=== PATIENT | female | born 1935 | race Caucasian/White ===

== ENCOUNTER → 2017-11-03 | Outpatient (CLI) | payer MEDICARE ==
[~2017-11-03] MED LIST: ACET-1966 PO; ASPI-1471 PO; CHOL100058 PO; FLU45SYR25 IM ONLY; FURO-45 PO; GUAI-274 PO; IBUP-56 PO; LACT237L30 PO; LOPE2CAP15 PO; MOM PO; MULT-947 PO; OMEP-218 PO; OMEP20CA68 PO; PNEI IJ; POTA8TAB45 PO; SULF-198 PO
== END ==
LOC: ZZSPRING 02:23
PROVIDERS: ATTEND Family Medicine
DX: I10 Essential (primary) hypertension (principal)
CPT/HCPCS: 36415; 82040; 82247; 82310; 82374; 82435; 82565; 82947; 84075; 84132; 84155; 84295; 84450; 84460; 84520; 85027

== ENCOUNTER → 2018-01-05 | Outpatient (CLI) | payer MEDICARE | LOC: ZZSPRING 00:58 | PROVIDERS: ATTEND Family Medicine | DX: D64.9 Anemia, unspecified (principal) | CPT/HCPCS: 36415; 82310; 82374; 82435; 82565; 82947; 84132; 84295; 84520; 85027 ==

== ENCOUNTER 2018-04-03 06:46 | Inpatient (IN) | payer MEDICARE ==
[~2018-04-03] VITALS: Ht 165.1 cm; Wt 83.9 kg
--- NOTE | 2018-04-03 06:11 | ER Report ---
History and Physical Time Seen By MD: 06:11 HPI/ROS CHIEF COMPLAINT: Fever, shortness breath, hypoxia HISTORY OF PRESENT ILLNESS: Patient is an 82-year-old female from spring here after being found to be hypoxic in the 80s, afebrile at 104F per group home report. She did receive Tylenol prior to arrival. Patient does have history of dementia and is able to tell us that she is short of breath and feels generally ill. EMS reports that the patient was persistently febrile with a temp of 103F. Patient does not require supplemental oxygen at baseline and was sent in because group home is unable to administer supplemental oxygen. REVIEW OF SYSTEMS: Constitutional: + fever, + chills. Eyes: No discharge. ENT: No sore throat. Cardiovascular: No chest pain, no palpitations. Respiratory: + cough, + shortness of breath Gastrointestinal: No abdominal pain, no vomiting. Genitourinary: No hematuria. Musculoskeletal: No back pain. Skin: No rashes. Neurological: No headache. Allergies: Coded Allergies: Penicillins (Verified Allergy, Unknown, 04/03/18) Cedhpza-Hsx-Kba Reductase Inhibitor (Verified Adverse Reaction, Unknown, Confusion and viusl hallucinations, 04/03/18) Home Meds Active Scripts Lactose-Free Food (BOOST) 237 Ml Liquid, 1 BOTTLE PO DAILY PRN for prn, #90 B OTTLE Prov:KERRI ALATORRE MD 02/23/18 Cholecalciferol (Vitamin D3) (VITAMIN D) 1,000 Unit Capsule, 1 CAP PO QDAY for 90 Days, #90 CAPSULE Prov:KERRI ALATORRE MD 06/16/17 Omeprazole Magnesium (OMEPRAZOLE MAGNESIUM) 20 Mg Capsule.dr, 1 TAB PO DAILY, #180 CAP 4 Refills Prov:KERRI ALATORRE MD 06/16/17 Reported Medications Cholecalciferol (Vitamin D3) (VITAMIN D3) 1,000 Unit Tablet, 1000 UNIT PO, TAB 04/03/18 Dextromethorphan Hbr (TUSSIN COUGH) 15 Mg/5 Ml Liquid, 15 MG PO 04/03/18 Omeprazole (OMEPRAZOLE) 20 Mg Capsule.dr, 1 CAP PO QDAY, CAP 04/03/18 Magnesium Hydroxide (MILK OF MAGNESIA) 400 Mg/5 Ml Oral.susp, 400 MG PO, BOTTLE 04/03/18 Mag Hydrox/Aluminum Hyd/Simeth (Maalox Advanced Suspension) 200 Mg-200 Mg-20 Mg/5 Ml Oral.susp 04/03/18 Loperamide Hcl (IMODIUM A-D) 1 Mg/7.5 Ml Liquid, 1 MG PO 04/03/18 Ibuprofen (IBUPROFEN) 200 Mg Capsule, 2 CAP PO Q6H, CAPSULE 04/03/18 Saliva Stimulant Agents Comb.3 (BIOTENE MOISTURIZING MOUTH) 44.3 Ml [place], 44.3 ML MM, SPRAY 04/03/18 Aspirin (ASPIRIN EC) 325 Mg Tablet.dr, 325 MG PO QDAY, TAB 04/03/18 Dextran 70/Hypromellose (ARTIFICIAL TEARS) 1 Each Droperette, 1 EACH OP 04/03/18 Magnesium Carbonate/Al Hydrox (ANTACID EXTRA STRENGTH CHW TAB) 1 Each Tab.chew, 1 EACH PO DAILY, TAB.CHEW 04/03/18 Acetaminophen (TYLENOL) 325 Mg Tablet, 325 MG PO Q4H, TAB 04/03/18 Hx Smoking: No Smoking Status: Never Smoker Hx Alcohol Use: No Constitutional Vital Sign - Last 24 Hours 04/03/18 04/03/18 04/03/18 06:15 06:46 07:01 Temp 101.3 Pulse 81 83 82 Resp 18 8 B/P (MAP) 129/75 120/60 (80) Pulse Ox 86 92 94 O2 Delivery Room Air Nasal Cannula Nasal Cannula O2 Flow Rate 2 2 Physical Exam General Appearance: The patient is alert, has no immediate need for airway protection and no signs of toxicity. Mild distress, + febrile Eyes: Pupils equal and round no pallor or injection. ENT, Mouth: Mucous membranes are + dry Respiratory: There are no retractions, lungs diminished at bases without rhonchi Cardiovascular: Regular rate and rhythm. Gastrointestinal: Abdomen is soft and non tender, no masses, bowel sounds normal. Neurological: + confused, demented at baseline Skin: Warm and dry, no rashes. Musculoskeletal: Neck is supple non tender. Extremities are nontender, nonswollen and have full range of motion. DIFFERENTIAL DIAGNOSIS: After history and physical exam differential diagnosis was considered for sepsis, pneumonia, viral syndrome, influenza, urinary tract infection Medical Decision Making Data Points Result Diagram: 04/03/18 0610 04/03/18 0610 Laboratory Hematology Test 04/03/18 06:10 04/03/18 06:26 Red Blood Count 4.03 M/uL (4.17-5.56) Mean Corpuscular Volume 73.5 fL (80.0-96.0) Mean Corpuscular Hemoglobin 23.6 pg (26.0-33.0) Mean Corpuscular Hemoglobin Concent 32.1 g/dL (32.0-36.0) Red Cell Distribution Width 17.2 % (11.5-14.5) Mean Platelet Volume 8.7 fL (7.2-11.1) Neutrophils (%) (Auto) 86.1 % (39.4-72.5) Lymphocytes (%) (Auto) 5.0 % (17.6-49.6) Monocytes (%) (Auto) 8.7 % (4.1-12.4) Eosinophils (%) (Auto) 0.0 % (0.4-6.7) Basophils (%) (Auto) 0.2 % (0.3-1.4) Nucleated RBC Relative Count (auto) 0.0 /100WBC Neutrophils # (Auto) 7.9 K/uL (2.0-7.4) Lymphocytes # (Auto) 0.5 K/uL (1.3-3.6) Monocytes # (Auto) 0.8 K/uL (0.3-1.0) Eosinophils # (Auto) 0.0 K/uL (0.0-0.5) Basophils # (Auto) 0.0 K/uL (0.0-0.1) Nucleated RBC Absolute Count (auto) 0.00 K/uL Peripheral Blood Smear No Y/N Prothrombin Time 15.0 seconds (12.0-14.4) Prothromb Time International Ratio 1.17 Activated Partial Thromboplast Time 33 seconds (23-35) Sodium Level 137 mmol/L (137-145) Potassium Level 4.3 mmol/L (3.5-5.0) Chloride Level 107 mmol/L (98-107) Carbon Dioxide Level 22 mmol/L (22-31) Blood Urea Nitrogen 17 mg/dl (7-18) Creatinine 1.00 mg/dl (0.52-1.04) Glomerular Filtration Rate Calc 53.3 Random Glucose 106 mg/dl (75-110) Lactate 1.1 mmol/L (0.7-2.1) Calcium Level 9.1 mg/dl (8.4-10.2) Total Bilirubin 0.9 mg/dl (0.2-1.3) Aspartate Amino Transf (AST/SGOT) 21 U/L (0-35) Alanine Aminotransferase (ALT/SGPT) 22 U/L (0-56) Alkaline Phosphatase 77 U/L (0-126) Troponin I < 0.012 ng/ml Total Protein 5.8 g/dl (6.3-8.2) Albumin 3.1 g/dl (3.5-5.0) Urine Color Yellow Urine Clarity Cloudy Urine pH 6.0 pH (4.8-9.5) Urine Specific Agar 1.015 Urine Protein 100 mg/dL (NEGATIVE) Urine Glucose (UA) Negative mg/dL (NEGATIVE) Urine Ketones Negative mg/dL (NEGATIVE) Urine Blood Small (NEGATIVE) Urine Nitrite Positive (NEGATIVE) Urine Bilirubin Negative (NEGATIVE) Urine Urobilinogen Negative mg/dL (0.2-1.9) Urine Leukocyte Esterase Large (NEGATIVE) Urine RBC 14 /HPF (0-2/HPF) Urine WBC 931 /HPF (0-5/HPF) Urine Squamous Epithelial Cells None /LPF (NONE-FEW) Urine Transitional Epithelial Cells Few /LPF (NONE-FEW) Urine Bacteria Many /HPF (NONE-FEW) Urine Mucus None /HPF (NONE-FEW) Chemistry Test 04/03/18 06:10 04/03/18 06:26 White Blood Count 9.2 k/uL (4.5-11.0) Red Blood Count 4.03 M/uL (4.17-5.56) Hemoglobin 9.5 g/dL (12.0-16.0) Hematocrit 29.6 % (34.0-47.0) Mean Corpuscular Volume 73.5 fL (80.0-96.0) Mean Corpuscular Hemoglobin 23.6 pg (26.0-33.0) Mean Corpuscular Hemoglobin Concent 32.1 g/dL (32.0-36.0) Red Cell Distribution Width 17.2 % (11.5-14.5) Platelet Count 169 K/uL (150-450) Mean Platelet Volume 8.7 fL (7.2-11.1) Neutrophils (%) (Auto) 86.1 % (39.4-72.5) Lymphocytes (%) (Auto) 5.0 % (17.6-49.6) Monocytes (%) (Auto) 8.7 % (4.1-12.4) Eosinophils (%) (Auto) 0.0 % (0.4-6.7) Basophils (%) (Auto) 0.2 % (0.3-1.4) Nucleated RBC Relative Count (auto) 0.0 /100WBC Neutrophils # (Auto) 7.9 K/uL (2.0-7.4) Lymphocytes # (Auto) 0.5 K/uL (1.3-3.6) Monocytes # (Auto) 0.8 K/uL (0.3-1.0) Eosinophils # (Auto) 0.0 K/uL (0.0-0.5) Basophils # (Auto) 0.0 K/uL (0.0-0.1) Nucleated RBC Absolute Count (auto) 0.00 K/uL Peripheral Blood Smear No Y/N Prothrombin Time 15.0 seconds (12.0-14.4) Prothromb Time International Ratio 1.17 Activated Partial Thromboplast Time 33 seconds (23-35) Glomerular Filtration Rate Calc 53.3 Lactate 1.1 mmol/L (0.7-2.1) Calcium Level 9.1 mg/dl (8.4-10.2) Total Bilirubin 0.9 mg/dl (0.2-1.3) Aspartate Amino Transf (AST/SGOT) 21 U/L (0-35) Alanine Aminotransferase (ALT/SGPT) 22 U/L (0-56) Alkaline Phosphatase 77 U/L (0-126) Troponin I < 0.012 ng/ml Total Protein 5.8 g/dl (6.3-8.2) Albumin 3.1 g/dl (3.5-5.0) Urine Color Yellow Urine Clarity Cloudy Urine pH 6.0 pH (4.8-9.5) Urine Specific Ag[place] 1.015 Urine Protein 100 mg/dL (NEGATIVE) Urine Glucose (UA) Negative mg/dL (NEGATIVE) Urine Ketones Negative mg/dL (NEGATIVE) Urine Blood Small (NEGATIVE) Urine Nitrite Positive (NEGATIVE) Urine Bilirubin Negative (NEGATIVE) Urine Urobilinogen Negative mg/dL (0.2-1.9) Urine Leukocyte Esterase Large (NEGATIVE) Urine RBC 14 /HPF (0-2/HPF) Urine WBC 931 /HPF (0-5/HPF) Urine Squamous Epithelial Cells None /LPF (NONE-FEW) Urine Transitional Epithelial Cells Few /LPF (NONE-FEW) Urine Bacteria Many /HPF (NONE-FEW) Urine Mucus None /HPF (NONE-FEW) Coagulation Test 04/03/18 06:10 Prothrombin Time 15.0 seconds Prothromb Time International Ratio 1.17 Activated Partial Thromboplast Time 33 seconds Urinalysis Test 04/03/18 06:26 Urine Color Yellow Urine Clarity Cloudy Urine pH 6.0 pH (4.8-9.5) Urine Specific Agar 1.015 Urine Protein 100 mg/dL (NEGATIVE) Urine Glucose (UA) Negative mg/dL (NEGATIVE) Urine Ketones Negative mg/dL (NEGATIVE) Urine Blood Small (NEGATIVE) Urine Nitrite Positive (NEGATIVE) Urine Bilirubin Negative (NEGATIVE) Urine Urobilinogen Negative mg/dL (0.2-1.9) Urine Leukocyte Esterase Large (NEGATIVE) Urine RBC 14 /HPF (0-2/HPF) Urine WBC 931 /HPF (0-5/HPF) Urine Squamous Epithelial Cells None /LPF (NONE-FEW) Urine Transitional Epithelial Cells Few /LPF (NONE-FEW) Urine Bacteria Many /HPF (NONE-FEW) Urine Mucus None /HPF (NONE-FEW) EKG/Imaging EKG Interpretation 12 lead EKG: Normal sinus rhythm, ventricular rate 79, QTC 433, no ischemic changes or arrhythmias present. Rhythm: normal sinus rhythm [place]: normal QRS: normal ST segments: normal Imaging Location: [facility] Patient: Ale Moffett : 1935 Visit/Account:[id number] Date of Sevice: 04/03/2018 PORTABLE CHEST: Indication: Dyspnea and hypoxia. Technique: A single frontal film was obtained. Comparison: None available. Skeletal and soft tissue structures: There are mild degenerative changes in the spine. No acute skeletal deformity is identified. Heart and mediastinum: The heart may be mildly enlarged. Lung moss: Well-expanded. There are diffuse mild interstitial changes. No acute parenchymal process is identified. There is no evidence of vascular congestion. Pleural spaces: Unremarkable. Impression: No acute process. ED Course/Re-evaluation Clinical Indication for ER IV: Hydration, IV Access ED Course Patient is an 82-year-old female from group home facility here with fever, hypoxia, new oxygen requirement in the setting of dementia, patient unable to verbalize primary complaint. She was given Tylenol prior to arrival. Patient was given fluid bolus, sepsis workup initiated. UA nitrite and esterase positive. Patient was administered IV Levaquin for antimicrobial therapy. Urine culture sent. Blood cultures collected. I discussed patient with Dr. Cristi Vargas accepted patient to the internal medicine service. Patient was stable at time of admission. Decision to Disposition Date: Apr 03, 2018 Decision to Disposition Time: 07:23 Depart Departure Latest Vital Signs Vital Signs Date Time Temp Pulse Resp B/P (MAP) Pulse Ox O2 Delivery O2 Flow Rate FiO2 04/03/18 07:01 82 8 120/60 (80) 94 Nasal Cannula 2 04/03/18 06:15 101.3 Impression: Primary Impression: Urinary tract infection Additional Impression: Fever Condition: Improved Disposition: Admitted from ER Referrals: KERRI ALATORRE MD (PCP) Problem Qualifiers BLADIMIR MOJICA DO Apr 03, 2018 06:11
--- NOTE | 2018-04-03 06:35 | EKG ---
[place] [facility] [place] REGIS ARSHAD : [id number] MR: [id number] V: [id number] EXAM DATE: ORDERING PHYSICIAN: BLADIMIR MOJICA TECHNOLOGIST: SAW Test Reason : SOB Blood Pressure : / mmHG Vent. Rate : 079 BPM Atrial Rate : 079 BPM P-R Int : 168 ms QRS Dur : 102 ms QT Int : 378 ms P-R-T Axes : 062 -24 050 degrees QTc Int : 433 ms Sinus rhythm Left axis No acute appearing abnormalities No previous ECGs available Confirmed by ALIVIA KHAN ([id number]) on 04/03/2018 9:49:07 AM Referred By: Confirmed By:ALIVIA KHAN
[2018-04-03 06:45] LABS: PLATELET COUNT, AUTOMATED 169 K/uL (150-450)
[~2018-04-03 06:46] MED LIST changes: -ASPI-764 PO; -CALC-520 PO; -CEFU250T11 PO; -CHOL10005 PO; -DEXT15LI36 PO; -DEXT1DRO15 OU; -IBUP-136 PO; -LOPE-147 PO; -LOPE1LIQ49 PO; -MAG-65 PO; -MAGN1TAB2 PO; +NS(*) 0.9% 1000 ML BAG 1,000 ML IV ONE; -OMEP-125 PO; -SALI10002 PO; -SALI1ADH TP; -SALI44.34 MM
[2018-04-03] MEDS ORDERED: LEVOFLOXACIN/D5W 750 MG/150 ML 150 ML IVPB ONE (06:55)
--- NOTE | 2018-04-03 06:55 | RADIOLOGY IMAGING REPORT ---
FACILITY: [facility] PATIENT NAME: Ale Moffett : 1935 MR: [id number] V: [id number] EXAM DATE: ORDERING PHYSICIAN: BLADIMIR MOJICA TECHNOLOGIST: Location: [facility] [place] Patient: Ale Moffett : 1935 Visit/Account:[id number] Date of Sevice: 04/03/2018 PORTABLE CHEST: Indication: Dyspnea and hypoxia. Technique: A single frontal film was obtained. Comparison: None available. Skeletal and soft tissue structures: There are mild degenerative changes in the spine. No acute skele dwayne deformity is identified. Heart and mediastinum: The heart may be mildly enlarged. Lung moss: Well-expanded. There are diffuse mild interstitial changes. No acute parenchymal process is identified. There is no evidence of vascular congestion. Pleural spaces: Unremarkable. Impression: No acute process. Report Dictated By: Josue Whittaker MD at 04/03/2018 6:50 AM Report E-Signed By: Josue Whittaker MD at 04/03/2018 6:52 AM WSN:[id number]
[2018-04-03 07:02] LABS: INR 1.17
[2018-04-03] MEDS ORDERED: LOPE1LIQ49 PO (07:09)
[2018-04-03] MEDS ORDERED: IBUP-136 PO (07:09)
[2018-04-03] MEDS ORDERED: MOM PO (07:09)
[2018-04-03] MEDS ORDERED: ASPI-764 PO (07:09)
[2018-04-03] MEDS ORDERED: DEXT1DRO15 OU (07:09)
[2018-04-03] MEDS ORDERED: CHOL10005 PO (07:09)
[2018-04-03] MEDS ORDERED: DEXT15LI36 PO (07:09)
[2018-04-03] MEDS ORDERED: MAG-65 PO (07:09)
[2018-04-03] MEDS ORDERED: OMEP-125 PO (07:09)
[2018-04-03] MEDS ORDERED: SALI44.34 MM (07:09)
[2018-04-03] MEDS ORDERED: MAGN1TAB2 PO (07:09)
[2018-04-03] MEDS ORDERED: ACET-1966 PO (07:09)
[2018-04-03 08:02] VITALS: BP 129/58
[2018-04-03] MEDS ORDERED: FLUSH 10 ML SYR IVP PRN (08:05)
[2018-04-03] MEDS ORDERED: CALC-520 PO (08:05)
[2018-04-03] MEDS ORDERED: LOPE-147 PO (08:13)
[2018-04-03] MEDS ORDERED: SALI10002 PO (08:13)
[2018-04-03] MEDS ORDERED: LACT237L30 PO (08:13)
[2018-04-03] MEDS ORDERED: SALI1ADH TP (08:19)
[2018-04-03] MEDS ORDERED: CALCIUM CARBONATE 500 MG CHEW PO PRN (08:35)
[2018-04-03] MEDS ORDERED: HYPROMELLOSE 0.4% LUB 15ML BTL OU PRN (08:35)
[2018-04-03] MEDS: NS(*) 0.9% 1000 ML BAG 1,000 ML IV PRN ×2 (08:44→18:54)
[2018-04-03] MEDS: PANTOPRAZOLE SOD 40 MG TABEC PO SCH (08:52)
[2018-04-03] MEDS: CHOLECALCIFEROL 1000 UNIT TAB PO SCH (08:52)
--- NOTE | 2018-04-03 08:54 | History & Physical ---
History of Present Illness Chief Complaint Fever to 103.3 at [facility]. History of Present Illness The patient is an 82 year old female who resides at [facility]. She is unable to give any history due to dementia and confusion. Per the patient's records, her PMH is significant for Alzheimer's dementia, dysphagia with hx of esophageal stricture and GERD. She was sent to [facility] ED earlier today due to fever. Per paperwork from [facility], her fever was 103.3. In the ER, evaluation revealed pyuria. Her chest x-ray was clear. WBC was high normal with a left shift. CMP was unremarkable. Lactate was WNL. The patient was recommended for admission for treatment of UTI. History Problems: (1) Alzheimer's dementia Status: Chronic (2) HTN (hypertension) Status: Chronic (3) Dysphagia Status: Chronic (4) Hx of total knee arthroplasty Status: Resolved Comment: Bilateral. (5) Skin cancer (6) Esophageal stricture Status: Resolved Comment: S/P dilation in 2017. (7) Edentulous Status: Chronic (8) Hx of hysterectomy Status: Resolved (9) Depression Status: Chronic Home Meds Active Scripts Lactose-Free Food (BOOST) 237 Ml Liquid, 1 BOTTLE PO TID PRN for prn, #90 BOTTLE Prov:SOLITARIO KHAN MD 04/03/18 Cholecalciferol (Vitamin D3) (VITAMIN D) 1,000 Unit Capsule, 1 CAP PO QDAY for 90 Days, #90 CAPSULE Prov:KERRI ALATORRE MD 06/16/17 Reported Medications Salicylic Acid (MEDIPLAST [id number]) 1 Each Adh..patch, 1 EACH TP DAILY On in AM prior to application of TEDs, off in PM after TEDs removed. 04/03/18 Loperamide Hcl (ANTI-DIARRHEA) 2 Mg Tablet, 2 MG PO PRN PRN for DIARRHEA Take 2 tabs after first loose stool, then 1 tab po after other loose stools. Do not exceed 8 doses in 24 hours. 04/03/18 Saliva Substitution Combo No.9 (Biotene) 1,000 Ml Mouthwash, 15 ML PO TID PRN for DRY MOUTH 04/03/18 Calcium Carbonate (TUMS X-STR) 300 Mg Tab.chew, 750-1500 MG PO Q2H PRN for DYSPEPSIA, TAB.CHEW Patient uses Tums extra strength 750 tabs at [facility]. 04/03/18 Dextromethorphan Hbr (TUSSIN COUGH) 15 Mg/5 Ml Liquid, 5 ML PO Q4-6H PRN for COUGH 04/03/18 Omeprazole (OMEPRAZOLE) 20 Mg Capsule.dr, 1 CAP PO QDAY, CAP 04/03/18 Magnesium Hydroxide (MILK OF MAGNESIA) 400 Mg/5 Ml Oral.susp, 15-30 ML PO BID PRN for CONSTIPATION, BOTTLE 04/03/18 Mag Hydrox/Aluminum Hyd/Simeth (Maalox Advanced Suspension) 200 Mg-200 Mg-20 Mg/5 Ml Oral.susp, 15 ML PO Q4H PRN for DYSPEPSIA 04/03/18 Ibuprofen (IBUPROFEN) 200 Mg Capsule, 1-2 CAP PO Q6H PRN for PAIN, CAPSULE Give with food. 04/03/18 Aspirin (ASPIRIN EC) 325 Mg Tablet.dr, 325 MG PO ONCE PRN for chest pain, TAB 04/03/18 Dextran 70/Hypromellose (ARTIFICIAL TEARS) 1 Each Droperette, 1 GTT OU PRN for dry eyes 04/03/18 Acetaminophen (TYLENOL) 325 Mg Tablet, 325-650 MG PO Q4H PRN for pain or fever, TAB 04/03/18 Discontinued Reported Medications Cholecalciferol (Vitamin D3) (VITAMIN D3) 1,000 Unit Tablet, 1000 UNIT PO, TAB 04/03/18 Loperamide Hcl (IMODIUM A-D) 1 Mg/7.5 Ml Liquid, 1 MG PO 04/03/18 Saliva Stimulant Agents Comb.3 (BIOTENE MOISTURIZING MOUTH) 44.3 Ml [place], 44.3 ML MM, SPRAY 04/03/18 Magnesium Carbonate/Al Hydrox (ANTACID EXTRA STRENGTH CHW TAB) 1 Each Tab.chew, 1 EACH PO DAILY, TAB.CHEW 04/03/18 Discontinued Scripts Omeprazole Magnesium (OMEPRAZOLE MAGNESIUM) 20 Mg Capsule.dr, 1 TAB PO DAILY, #180 CAP 4 Refills Prov:KERRI ALATORRE MD 06/16/17 Allergies: Coded Allergies: Penicillins (Verified Allergy, Unknown, 04/03/18) Aqicvpw-Vxj-Zrc Reductase Inhibitor (Verified Adverse Reaction, Unknown, Confusion and viusl hallucinations, 04/03/18) Patient History: FH: arthritis MOTHER (Coumadin caused bleeding), , Age:81 FH: dementia Brothers FH: prostate cancer Brothers FH: skin cancer Brothers Other Social/Family Hx The patient resides at [facility]. She is . Hx Smoking: No Smoking Status: Never Smoker Hx Alcohol Use: No Hx Substance Use Disorder: No Social Drug Use: Never History of IV Drug Use: No Review of Systems Constitutional: Fever Neurological: Confusion ENT: Other (Edentulous. Per paperwork, she wears an upper denture. ) Gastrointestinal: Dysphagia (Per paperwork from [facility].) Genitourinary: Urinary Incontinence (Per paperwork from [facility].) Other Unable to obtain complete ROS due to patient dementia and confusion. Exam Vital Signs Vital Signs Date Time Temp Pulse Resp B/P (MAP) Pulse Ox O2 Delivery O2 Flow Rate FiO2 04/03/18 08:02 98.2 75 16 129/58 (81) 93 Nasal Cannula 2.0 General Appearance: Alert, Awake, No Acute Distress, Other (Temp in ER 101.3) Neuro: Other (Confused. Poor short term memory.) Eyes: PERRLA Cardiovascular: Regular Rate and Rhythm (With soft MIRI heard best at LUSB), Other (Trace edema both LE) Respiratory: No Respiratory Distress, Clear to Auscultation GI: Abd Soft and Non-Tender Lymph: Cervical Nodes Benign Extremities: Warm, Perfused, Edema (Trace.) Integumentary: Generalized Fragile Skin Psych: Other (Patient is confused.) Medical Decision Making Data Points Result Diagram: 04/03/18 0610 04/03/18 0610 Item Value Date Time Troponin I < 0.012 ng/ml 04/03/18 0610 Lactate 1.1 mmol/L 04/03/18 0610 Calcium Level 9.1 mg/dl 04/03/18 0610 Total Bilirubin 0.9 mg/dl 04/03/18 0610 Aspartate Amino Transf (AST/SGOT) 21 U/L 04/03/18 0610 Alanine Aminotransferase (ALT/SGPT) 22 U/L 04/03/18 0610 Alkaline Phosphatase 77 U/L 04/03/18 0610 Total Protein 5.8 g/dl L 04/03/18 0610 Albumin 3.1 g/dl L 04/03/18 0610 Influenza Virus Type A (PCR) Negative 04/03/18 0717 Influenza Virus Type B (PCR) Negative 04/03/18716 Urine Color Yellow 04/03/18625 Urine Clarity Cloudy 04/03/18625 Urine Specific [place] 1.015 04/03/18625 Urine pH 6.0 pH 04/03/18625 Urine Protein 100 mg/dL 04/03/18625 Urine Glucose (UA) Negative mg/dL 04/03/18625 Urine Ketones Negative mg/dL 04/03/18625 Urine Blood Small 04/03/18625 Urine Nitrite Positive H 04/03/18625 Urine Bilirubin Negative 04/03/18625 Urine Urobilinogen Negative mg/dL 04/03/18625 Urine Leukocyte Esterase Large H 04/03/18625 Urine RBC 14 /HPF 04/03/18625 Urine WBC 931 /HPF 04/03/18625 Urine Squamous Epithelial Cells None /LPF 04/03/18625 Urine Transitional Epithelial Cells Few /LPF 04/03/18625 Urine Bacteria Many /HPF H 04/03/18625 Urine Mucus None /HPF 04/03/18625 Prothrombin Time 15.0 seconds H 04/03/18 0610 Prothromb Time International Ratio 1.17 04/03/18 06 Activated Partial Thromboplast Time 33 seconds 04/03/18609 Urine and blood culture pending. EKG / Imaging EKG Interpretation FACILITY: [facility] [place] PATIENT NAME: ALE ARSHAD : [id number] MR: [id number] V: [id number] EXAM DATE: ORDERING PHYSICIAN: BLADIMIR MOJICA TECHNOLOGIST: SAW Test Reason : SOB Blood Pressure : / mmHG Vent. Rate : 079 BPM Atrial Rate : 079 BPM P-R Int : 168 ms QRS Dur : 102 ms QT Int : 378 ms P-R-T Axes : 062 -24 050 degrees QTc Int : 433 ms Normal sinus rhythm Normal ECG No previous ECGs available Referred By: Confirmed By: 9 T: / Imaging FACILITY: [facility] [place] PATIENT NAME: Ale Arshad : 1935 MR: [id number] V: [id number] EXAM DATE: ORDERING PHYSICIAN: BLADIMIR MOJICA TECHNOLOGIST: Location: [facility] Patient: Ale Arshad : 1935 Visit/Account:[id number] Date of Sevice: 04/03/2018 PORTABLE CHEST: Indication: Dyspnea and hypoxia. Technique: A single frontal film was obtained. Comparison: None available. Skeletal and soft tissue structures: There are mild degenerative changes in the spine. No acute skeletal deformity is identified. Heart and mediastinum: The heart may be mildly enlarged. Lung moss: Well-expanded. There are diffuse mild interstitial changes. No acute parenchymal process is identified. There is no evidence of vascular congestion. Pleural spaces: Unremarkable. Impression: No acute process. Report Dictated By: Josue Whittaker MD at 04/03/2018 6:50 AM Report E-Signed By: Josue Whittaker MD at 04/03/2018 6:52 AM WSN:[id number] Pre-Admit Course ED Medications NS, Tylenol, Levaquin. Medical Record Review: Yes Assessment and Plan Problems: (1) Urinary tract infection Status: Acute Assessment & Plan: Received a dose of Levaquin 750mg in ER. She is confused at baseline. Will switch to Rocephin and monitor culture results. (2) Alzheimer's dementia Status: Chronic Assessment & Plan: The patient is more confused likely due to infection. Will treat UTI and monitor. (3) GERD (gastroesophageal reflux disease) Status: Chronic Assessment & Plan: Continue PPI. Will order pantoprazole here. Has history of dysphagia due to esophageal stricture. Wears an upper denture per [facility] paperwork. Soft diet ordered. (4) Dysphagia Status: Chronic Assessment & Plan: Has history of dysphagia due to esophageal stricture. Wears an upper denture per [employer] paperwork. Soft diet ordered. Time Spent on Plan of Care: < 30 min Venous Thromboembolism VTE Risk Patient's VTE Risk: Low VTE Diagnostic Test 2 Days Prior to Admit: No Antithrombotics Is Pt On Any Antithrombotics?: No Exam Sepsis Risk: No Definite Risk SOLITARIO KHAN MD Apr 03, 2018 08:54
[2018-04-03] MEDS: ACETAMINOPHEN 325 MG TAB PO PRN ×2 (10:53→17:22)
--- NOTE | 2018-04-03 14:32 | Medical Nutrition Therapy ---
Nutrition Anthropometrics Weight (Pounds): 180 Weight (Calculated Kilograms): 81.647 Leonidas Nutrition Score: Adequate Leonidas Nutrition Risk Score: 16 Dietary Referral Nutrition Risk Factors: Nutrition Risk Comment: Physical Findings Physical Appearance: Not able to calculate BMI Skin Appearance Skin Appearance: Edema Edema Location Modifier: Edema Location: Type of Edema: Degree of Edema: Gastrointestinal Symptoms GI Symtoms: Tube Present: Bowel Sounds: Recent Bowel Pattern: Stool Characteristics: Nutrition/Food History Difficulty Swallowing Nutritional Diagnosis Nutritional Risk Acuity 2: Dysphagia Nutritional Risk Acuity 3: Fair Appetite, Alzheimer's Nutritional Risk Acuity 4: Age Related Past Medical History: Alzheimer's dementia, HTN, Dysphagia, total knee arthroplasty, Skin cancer, Esophageal stricture, hysterectomy, Depression Nutritional Acuity: 2-Moderate Nutrition Diagnosis: Swallowing Difficulties Nutrition Etiology: Physiological Causes Nutrition Problem/Etiology/Sym: Swallowing Difficulty related to Mechanical issues, e.g., esophageal stricture AEB dysphagia and need for Soft diet. Energy Requirement: 1650 (Kg X 20 Kcal) Protein Requirement: 81 (Kg X 1.0) Fluid Requirement: 1650 Diet Type: [place]/Soft Nutrition Intervention: Cont diet as ordered Nutrition Monitoring & Eval Nutrition Goals: Eat 75-100% Meal RD Patient Assessment Time: [address] Assessment Type: RD Assessment Patient Nutrition Acuity: 2-Moderate Follow Up Date: Apr 06, 2018 Nutritional Comment: 04/03/18 Pt is a [facility] resident admitted for UTI. Alb 3.1, GFR 53.3. History of dysphagia and now receiving Soft/[place] diet. Consumed 75% of first meal in facility. Follow intake, labs, etc. -PACHECO BRINK Apr 03, 2018 14:32
[2018-04-03 15:22] VITALS: BP 136/79
[2018-04-03] MEDS ORDERED: MELATONIN 3 MG TAB PO PRN (17:20)
[2018-04-03 19:58] VITALS: BP 166/61
[2018-04-04] VITALS (7 sets, daily range): BP systolic 122–148; BP diastolic 59–89
[2018-04-04] MEDS: ACETAMINOPHEN 325 MG TAB PO PRN ×3 (00:18→19:04)
[2018-04-04] MEDS: NS(*) 0.9% 1000 ML BAG 1,000 ML IV PRN (04:36)
[2018-04-04 06:00] LABS: PLATELET COUNT, AUTOMATED 156 K/uL (150-450)
[2018-04-04] MEDS: cefTRIAXone 1 GM VIAL IVP SCH (06:13)
--- NOTE | 2018-04-04 09:24 | Hospitalist Progress Note ---
Subjective Progress Notes Subjective This patient was admitted with a urinary infection. She had no acute events overnight. Patient Complains of: Cardiovascular: No: Chest Pain Respiratory: No: Shortness of Breath Physical Exam Vital Signs Date Time Temp Pulse Resp B/P (MAP) Pulse Ox O2 Delivery O2 Flow Rate FiO2 04/04/18 07:51 96 Nasal Cannula 1.0 04/04/18 07:51 98.3 73 16 132/74 (93) Intake and Output 04/04/18 07:00 Intake Total 3241 ml Balance 3241 ml Intake Oral 1020 ml IV Total 2221 ml # Voids 7 # Bowel Movements 3 Cardiovascular: Regular Rate and Rhythm Respiratory: Clear to Auscultation Result Diagram: 04/04/1852304/04/18523 Assessment and Plan Problems: (1) Urinary tract infection Status: Acute Assessment & Plan: She did have a fever at admission. Her urine culture is growing a gram negative becky. She is currently on treatment with ceftriaxone. (2) Alzheimer's dementia Status: Chronic (3) GERD (gastroesophageal reflux disease) Status: Chronic Assessment & Plan: She is on chronic treatment with Prilosec. (4) Dysphagia Status: Chronic Assessment & Plan: Has history of dysphagia due to esophageal stricture. Exam Sepsis Risk: No Definite Risk ELVIRA HOWARD DO Apr 04, 2018 09:24
[2018-04-04] MEDS: PANTOPRAZOLE SOD 40 MG TABEC PO SCH (09:38)
[2018-04-04] MEDS: CHOLECALCIFEROL 1000 UNIT TAB PO SCH (09:38)
--- NOTE | 2018-04-04 09:58 | NUR ---
Report called to [facility]. No additional information needed.
[2018-04-05] MEDS: ACETAMINOPHEN 325 MG TAB PO PRN ×2 (01:04→08:31)
[2018-04-05 03:24] VITALS: BP 147/85
[2018-04-05 05:48] LABS: PLATELET COUNT, AUTOMATED 188 K/uL (150-450)
[2018-04-05] MEDS: cefTRIAXone 1 GM VIAL IVP SCH (05:48)
[2018-04-05 06:55] VITALS: BP 172/84
[2018-04-05] MEDS: PANTOPRAZOLE SOD 40 MG TABEC PO SCH (08:31)
[2018-04-05] MEDS: CHOLECALCIFEROL 1000 UNIT TAB PO SCH (08:31)
[2018-04-05] MEDS ORDERED: CEFUROXIME AXETIL 250 MG TAB PO SCH (09:00)
[2018-04-05] MEDS ORDERED: CEPHALEXIN MONO 500 MG CAP PO SCH (09:00)
[2018-04-05] MEDS ORDERED: INFLUENZA VIRUS VAC 0.5ML SYR IM ONLY ONE (09:00)
--- NOTE | 2018-04-05 09:00 | Antimicrobial Stewardship ---
Antimicrobial Time Out Antimicrobial Stewardship MD Service: Hospitalist Indications: UTI Antimicrobial Used Rocephin 1 gm. Changed to po Keflex on 04/05. Start Date: Apr 04, 2018 Culture Results: Yes (e coli in urine turner sensitive) Eligible for PO Conversion Eligable for PO Conversion: Yes (po Keflex started on 04/05) SOLITARIO CLAY Apr 05, 2018 09:00
--- NOTE | 2018-04-05 09:35 | Antimicrobial Stewardship ---
Antimicrobial Stewardship Empiricly appropriate: Yes Support empiric regimen: Yes Comment Urine Cx growing e. coli - pansensitive Approriate Cultures done: Yes Review the antibiotic sensitiv: Yes (Morgan sensitive ecoli in the Urine) Renal/Hepatic dosing: Yes Appropriate dose for site: Yes Comment CrCl ~59 ml/min Reviewed for Drug Interaction: Yes Clinically stable/improving: Yes IV to PO Opportunity: Yes Comment Tranisition to oral antibiotics- Ceftin 250mg po bid (pt with pcn allergy--unknown reaction, tolerating ceftriaxone) Determine cumulative duration: day 3 antibiotics Determine standard duration: 7-10 days total Comment 82 yo F admitted with fever, possible UTI, UA showed (+) nitrite, (+) leuk esterase, (+) WBC of 931, (-) Squamous Epithelial cells), chest xray clear, lactate wnl. 04/03/18- given levofloxacin 750 mg x 1 04/04/18- Started Ceftriaxone 1g IV 04/05/18 - switched to ceftin 250mg po bid Plan treatment for 7-10 days total. Marine Oviedo, PharmD, BCOP MARINE OVIEDO Apr 05, 2018 09:35
[2018-04-05] MEDS ORDERED: CEFU250T11 PO (09:51)
--- NOTE | 2018-04-05 10:01 | Hospitalist Depart ---
Discharge Summary Reason for Hosp/Final Diag: (1) Urinary tract infection Status: Acute Hospital Course & Plan: Patient was sent from [facility] due to fever of 103.3. She did have a fever at admission. UA showed pyuria. Her urine culture grew. E. coli. She was initially treated IV ceftriaxone and then converted to o ral Ceftin 250mg bid. (2) Alzheimer's dementia Status: Chronic Hospital Course & Plan: The patient resides at [facility]. (3) GERD (gastroesophageal reflux disease) Status: Chronic Hospital Course & Plan: She is on chronic treatment with Prilosec. She was given pantoprazole during her inpatient stay. (4) Dysphagia Status: Chronic Hospital Course & Plan: Has history of dysphagia due to esophageal stricture. She has had esophageal dilation in the past (2017). No issues during her insct ie stay. Departure Weight (Pounds): 185 Result Diagram: 04/05/18 0504/04/18 0524 Condition: Improved Discharge: Assisted Living Time Spent: < 30 min Discharge Instructions Home Meds Active Scripts Cefuroxime Axetil (CEFUROXIME) 250 Mg Tablet, 250 MG PO BID, #14 TAB 0 Refills Prov:SOLITARIO KHAN MD 04/05/18 Lactose-Free Food (BOOST) 237 Ml Liquid, 1 BOTTLE PO TID PRN for prn, #90 BOTTLE Prov:SOLITARIO KHAN MD 04/03/18 Cholecalciferol (Vitamin D3) (VITAMIN D) 1,000 Unit Capsule, 1 CAP PO QDAY for 90 Days, #90 CAPSULE Prov:KERRI ALATORRE MD 06/16/17 Reported Medications Salicylic Acid (MEDIPLAST NSIR-ATCNGI-FXFZ) 1 Each Adh..patch, 1 EACH TP DAILY On in AM prior to application of TEDs, off in PM after TEDs removed. 04/03/18 Loperamide Hcl (ANTI-DIARRHEA) 2 Mg Tablet, 2 MG PO PRN PRN for DIARRHEA Take 2 tabs after first loose stool, then 1 tab po after other loose stools. Do not exceed 8 doses in 24 hours. 04/03/18 Saliva Substitution Combo No.9 (Biotene) 1,000 Ml Mouthwash, 15 ML PO TID PRN for DRY MOUTH 04/03/18 Calcium Carbonate (TUMS X-STR) 300 Mg Tab.chew, 750-1500 MG PO Q2H PRN for DYSPEPSIA, TAB.CHEW Patient uses Tums extra strength 750 tabs at [facility]. 04/03/18 Dextromethorphan Hbr (TUSSIN COUGH) 15 Mg/5 Ml Liquid, 5 ML PO Q4-6H PRN for COUGH 04/03/18 Omeprazole (OMEPRAZOLE) 20 Mg Capsule.dr, 1 CAP PO QDAY, CAP 04/03/18 Magnesium Hydroxide (MILK OF MAGNESIA) 400 Mg/5 Ml Oral.susp, 15-30 ML PO BID PRN for CONSTIPATION, BOTTLE 04/03/18 Mag Hydrox/Aluminum Hyd/Simeth (Maalox Advanced Suspension) 200 Mg-200 Mg-20 Mg/5 Ml Oral.susp, 15 ML PO Q4H PRN for DYSPEPSIA 04/03/18 Ibuprofen (IBUPROFEN) 200 Mg Capsule, 1-2 CAP PO Q6H PRN for PAIN, CAPSULE Give with food. 04/03/18 Aspirin (ASPIRIN EC) 325 Mg Tablet.dr, 325 MG PO ONCE PRN for chest pain, TAB 04/03/18 Dextran 70/Hypromellose (ARTIFICIAL TEARS) 1 Each Droperette, 1 GTT OU PRN for dry eyes 04/03/18 Acetaminophen (TYLENOL) 325 Mg Tablet, 325-650 MG PO Q4H PRN for pain or fever, TAB 04/03/18 Discontinued Reported Medications Cholecalciferol (Vitamin D3) (VITAMIN D3) 1,000 Unit Tablet, 1000 UNIT PO, TAB 04/03/18 Loperamide Hcl (IMODIUM A-D) 1 Mg/7.5 Ml Liquid, 1 MG PO 04/03/18 Saliva Stimulant Agents Comb.3 (BIOTENE MOISTURIZING MOUTH) 44.3 Ml Wrights, 44.3 ML MM, SPRAY 04/03/18 Magnesium Carbonate/Al Hydrox (ANTACID EXTRA STRENGTH CHW TAB) 1 Each Tab.chew, 1 EACH PO DAILY, TAB.CHEW 04/03/18 Discontinued Scripts Omeprazole Magnesium (OMEPRAZOLE MAGNESIUM) 20 Mg Capsule.dr, 1 TAB PO DAILY, #180 CAP 4 Refills Prov:KERRI ALATORRE MD 06/16/17 Follow up Referrals: Internal Medicine - In One Week @ [facility] with KERRI ALATORRE MD Activity: As Tolerated Special Instructions: Continue soft diet. Copies to: KERRI ALATORRE MD ; Venous Thromboembolism Antithrombotics Is Pt On Any Antithrombotics?: No SOLITARIO KHAN MD Apr 05, 2018 10:01
== END 2018-04-05 11:00 | DRG 690 ==
LOC: ER 07:01 → MED 07:27
PROVIDERS: ADMIT Internal Medicine; ATTEND Internal Medicine
DX: N39.0 Urinary tract infection, site not specified (principal); K21.9 Gastro-esophageal reflux disease without esophagitis; R09.02 Hypoxemia; I10 Essential (primary) hypertension; F02.80 Dementia in other diseases classified elsewhere, unspecified severity, without behavioral disturbance, psychotic disturbance, mood disturbance, and anxiety; G30.9 Alzheimer's disease, unspecified; R13.10 Dysphagia, unspecified; B96.20 Unspecified Escherichia coli [E. coli] as the cause of diseases classified elsewhere; Z96.653 Presence of artificial knee joint, bilateral; K06.9 Disorder of gingiva and edentulous alveolar ridge, unspecified; F32.9 Major depressive disorder, single episode, unspecified; Z85.828 Personal history of other malignant neoplasm of skin; Z90.710 Acquired absence of both cervix and uterus; Z88.0 Allergy status to penicillin
CPT/HCPCS: 36415; 71045; 81001; 82040; 82247; 82310; 82374; 82435; 82565; 82607; 82728; 82746; 82947; 83540; 83550; 83605; 83921; 84075; 84132; 84155; 84295; 84450; 84460; 84484; 84520; 85025; 85610; 85730; 87040; 87077; 87088; 87186; 87502; 93005; 96365; 99284; A4353; C1758; J0696; J1956; J7030

== ENCOUNTER → 2018-04-03 | Outpatient (CLI) | payer MEDICARE ==
[~2018-04-03] MED LIST changes: +ASPI-764 PO; +CALC-520 PO; +CEFU250T11 PO; +CHOL10005 PO; +DEXT15LI36 PO; +DEXT1DRO15 OU; +IBUP-136 PO; +LOPE-147 PO; +LOPE1LIQ49 PO; +MAG-65 PO; +MAGN1TAB2 PO; +OMEP-125 PO; +SALI10002 PO; +SALI1ADH TP; +SALI44.34 MM
== END ==
LOC: AMB 05:50
PROVIDERS: ATTEND Nurse Practitioner
DX: R50.9 Fever, unspecified (principal); R53.1 Weakness; R09.02 Hypoxemia; R11.10 Vomiting, unspecified
CPT/HCPCS: A0425; A0427

== ENCOUNTER → 2018-04-05 | Outpatient (CLI) | payer MEDICARE ==
[~2018-04-05] MED LIST changes: +ASPI-764 PO; +CALC-520 PO; +CEFU250T11 PO; +CHOL10005 PO; +DEXT15LI36 PO; +DEXT1DRO15 OU; +IBUP-136 PO; +LOPE-147 PO; +LOPE1LIQ49 PO; +MAG-65 PO; +MAGN1TAB2 PO; -NS(*) 0.9% 1000 ML BAG 1,000 ML IV ONE; +OMEP-125 PO; +SALI10002 PO; +SALI1ADH TP; +SALI44.34 MM
== END ==
LOC: AMB 10:45
PROVIDERS: ATTEND Nurse Practitioner
DX: Z76.89 Persons encountering health services in other specified circumstances (principal)
CPT/HCPCS: A0425; A0428

== ENCOUNTER 2018-08-01 04:34 | Emergency (ER) | payer MEDICARE ==
[2018-08-01 04:36] VITALS: BP 142/85
--- NOTE | 2018-08-01 04:38 | ER Report ---
History and Physical Time Seen By MD: 04:38 HPI/ROS CHIEF COMPLAINT: Fall HISTORY OF PRESENT ILLNESS: 83-year-old female brought in by EMS from [facility]. Patient fell tonight onto her back was unwitnessed. She was sitting on the bed. When EMS arrived. She has a bruise in her right upper back. It appears to be old. She fell yesterday as well. Patient has advanced dementia. His only oriented to self. Patient is DO NOT RESUSCITATE. There is a recent note from medicine clinic with a visit with Dr Alatorre. Patient was brought in with a c-collar in place. Palpation of her head and neck reveal no tenderness or trauma. Collar was removed by clinical rules. Patient was able to ambulate from her bed to the rsells without difficulty. She is complaining of some right hip and leg pain with movement. REVIEW OF SYSTEMS: Respiratory: No cough, no dyspnea. Cardiovascular: No chest pain, no palpitations. Gastrointestinal: No vomiting, no abdominal pain. Musculoskeletal: No back pain. Allergies: Coded Allergies: Penicillins (Verified Allergy, Unknown, 04/03/18) Ffsxcka-Lak-Qex Reductase Inhibitor (Verified Adverse Reaction, Unknown, Confusion and viusl hallucinations, 04/03/18) Home Meds Active Scripts Omeprazole (OMEPRAZOLE) 20 Mg Capsule.dr, 1 CAP PO QDAY, #90 CAP 4 Refills Prov:KERRI ALATORRE MD 06/21/18 Lactose-Free Food (BOOST) 237 Ml Liquid, 1 BOTTLE PO TID PRN for prn, #90 BOTTLE Prov:SOLITARIO KHAN MD 04/03/18 Cholecalciferol (Vitamin D3) (VITAMIN D) 1,000 Unit Capsule, 1 CAP PO QDAY for 90 Days, #90 CAPSULE Prov:KERRI ALATORRE MD 06/16/17 Reported Medications Loperamide HCl (Imodium A-D) 2 Mg Capsule, 1-2 CAP PO DIRECTED 07/13/18 Guaifenesin/Dextromethorphan (TUSSIN DM LIQUID) 118 Ml Liquid, 5 ML PO Q4-6H PRN for cough 07/13/18 Salicylic Acid (MEDIPLAST TIGM-SKPBDI-DXGP) 1 Each Adh..patch, 1 EACH TP DAILY On in AM prior to application of TEDs, off in PM after TEDs removed. 04/03/18 Saliva Substitution Combo No.9 (Biotene) 1,000 Ml Mouthwash, 15 ML PO TID PRN for DRY MOUTH 04/03/18 Calcium Carbonate (TUMS X-STR) 300 Mg Tab.chew, 750-1500 MG PO Q2H PRN for DYSPEPSIA, TAB.CHEW Patient uses Tums extra strength 750 tabs at [facility]. 04/03/18 Magnesium Hydroxide (MILK OF MAGNESIA) 400 Mg/5 Ml Oral.susp, 15-30 ML PO BID PRN for CONSTIPATION, BOTTLE 04/03/18 Mag Hydrox/Aluminum Hyd/Simeth (Maalox Advanced Suspension) 200 Mg-200 Mg-20 Mg/5 Ml Oral.susp, 15 ML PO Q4H PRN for DYSPEPSIA 04/03/18 Aspirin (ASPIRIN EC) 325 Mg Tablet.dr, 325 MG PO ONCE PRN for chest pain, TAB 04/03/18 Dextran 70/Hypromellose (ARTIFICIAL TEARS) 1 Each Droperette, 1 GTT OU PRN for dry eyes 04/03/18 Acetaminophen (TYLENOL) 325 Mg Tablet, 325-650 MG PO Q4H PRN for pain or fever, TAB 04/03/18 Past Medical/Surgical History Past Medical History Reviewed: Yes Neurologic: Reports hx of: dementia Gastrointestinal: Reports hx of: GERD Gastrointestinal: Reports hx of: other GI surgery (Esophageal stricture dilatation on 07/30/16) Gynecologic: Reports hx of: hysterectomy (1969) Musculoskeletal: Reports hx of: total joint replacement (Bilateral Knees, 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 Palpation of the head and neck reveals no tenderness or trauma. Patient's c-collar was removed with clinical rules. HEENT: Pupils equal and round no injection. Oropharynx without dental trauma Respiratory: Chest is non tender, lungs are clear to auscultation. No chest wall tenderness except there is a 3 cm hematoma in the right upper scapular area. It is nontender and I suspect it is old from yesterday Cardiac: regular rate and rhythm Gastrointestinal: Abdomen is soft and non tender, no masses, bowel sounds normal. Musculoskeletal: Neck: Neck is supple and non tender. Extremities have full range of motion and are non tender. There is pain with movement of the right hip, but there is good range of motion. Skin: No rashes or lesions. DIFFERENTIAL DIAGNOSIS: After history and physical exam differential diagnosis was considered for fall in the elderly including but not limited to intracranial injury, long bone and pelvic bone fracture, spinal injury, and intrathoracic injury. Medical Decision Making Data Points Result Diagram: 08/01/18 04308/01/18 043 Laboratory Hematology Test 08/01/18 04:30 08/01/18 05:00 Red Blood Count 4.32 M/uL (4.17-5.56) Mean Corpuscular Volume 72.5 fL (80.0-96.0) Mean Corpuscular Hemoglobin 22.4 pg (26.0-33.0) Mean Corpuscular Hemoglobin Concent 30.9 g/dL (32.0-36.0) Red Cell Distribution Width 17.3 % (11.5-14.5) Mean Platelet Volume 8.8 fL (7.2-11.1) Neutrophils (%) (Auto) 63.3 % (39.4-72.5) Lymphocytes (%) (Auto) 25.3 % (17.6-49.6) Monocytes (%) (Auto) 9.0 % (4.1-12.4) Eosinophils (%) (Auto) 1.7 % (0.4-6.7) Basophils (%) (Auto) 0.7 % (0.3-1.4) Nucleated RBC Relative Count (auto) 0.0 /100WBC Neutrophils # (Auto) 3.7 K/uL (2.0-7.4) Lymphocytes # (Auto) 1.5 K/uL (1.3-3.6) Monocytes # (Auto) 0.5 K/uL (0.3-1.0) Eosinophils # (Auto) 0.1 K/uL (0.0-0.5) Basophils # (Auto) 0.0 K/uL (0.0-0.1) Nucleated RBC Absolute Count (auto) 0.00 K/uL Peripheral Blood Smear No Y/N Sodium Level 139 mmol/L (137-145) Potassium Level 4.0 mmol/L (3.5-5.0) Chloride Level 107 mmol/L (98-107) Carbon Dioxide Level 26 mmol/L (22-31) Blood Urea Nitrogen 15 mg/dl (7-18) Creatinine 0.90 mg/dl (0.52-1.04) Glomerular Filtration Rate Calc > 60.0 Random Glucose 95 mg/dl (75-110) Calcium Level 9.3 mg/dl (8.4-10.2) Total Bilirubin 0.2 mg/dl (0.2-1.3) Aspartate Amino Transf (AST/SGOT) 18 U/L (0-35) Alanine Aminotransferase (ALT/SGPT) 19 U/L (0-56) Alkaline Phosphatase 82 U/L (0-126) Total Protein 6.5 g/dl (6.3-8.2) Albumin 3.7 g/dl (3.5-5.0) Urine Color Yellow Urine Clarity Clear Urine pH 5.0 pH (4.8-9.5) Urine Specific [place] 1.028 Urine Protein Negative mg/dL (NEGATIVE) Urine Glucose (UA) Negative mg/dL (NEGATIVE) Urine Ketones Negative mg/dL (NEGATIVE) Urine Blood Negative (NEGATIVE) Urine Nitrite Negative (NEGATIVE) Urine Bilirubin Negative (NEGATIVE) Urine Urobilinogen Negative mg/dL (0.2-1.9) Urine Leukocyte Esterase Negative (NEGATIVE) Urine RBC <1 /HPF (0-2/HPF) Urine WBC 2 /HPF (0-5/HPF) Urine Squamous Epithelial Cells Many /LPF (NONE-FEW) Urine Bacteria Negative /HPF (NONE-FEW) Urine Mucus Few /HPF (NONE-FEW) Chemistry Test 08/01/18 04:30 08/01/18 05:00 White Blood Count 5.8 k/uL (4.5-11.0) Red Blood Count 4.32 M/uL (4.17-5.56) Hemoglobin 9.7 g/dL (12.0-16.0) Hematocrit 31.3 % (34.0-47.0) Mean Corpuscular Volume 72.5 fL (80.0-96.0) Mean Corpuscular Hemoglobin 22.4 pg (26.0-33.0) Mean Corpuscular Hemoglobin Concent 30.9 g/dL (32.0-36.0) Red Cell Distribution Width 17.3 % (11.5-14.5) Platelet Count 219 K/uL (150-450) Mean Platelet Volume 8.8 fL (7.2-11.1) Neutrophils (%) (Auto) 63.3 % (39.4-72.5) Lymphocytes (%) (Auto) 25.3 % (17.6-49.6) Monocytes (%) (Auto) 9.0 % (4.1-12.4) Eosinophils (%) (Auto) 1.7 % (0.4-6.7) Basophils (%) (Auto) 0.7 % (0.3-1.4) Nucleated RBC Relative Count (auto) 0.0 /100WBC Neutrophils # (Auto) 3.7 K/uL (2.0-7.4) Lymphocytes # (Auto) 1.5 K/uL (1.3-3.6) Monocytes # (Auto) 0.5 K/uL (0.3-1.0) Eosinophils # (Auto) 0.1 K/uL (0.0-0.5) Basophils # (Auto) 0.0 K/uL (0.0-0.1) Nucleated RBC Absolute Count (auto) 0.00 K/uL Peripheral Blood Smear No Y/N Glomerular Filtration Rate Calc > 60.0 Calcium Level 9.3 mg/dl (8.4-10.2) Total Bilirubin 0.2 mg/dl (0.2-1.3) Aspartate Amino Transf (AST/SGOT) 18 U/L (0-35) Alanine Aminotransferase (ALT/SGPT) 19 U/L (0-56) Alkaline Phosphatase 82 U/L (0-126) Total Protein 6.5 g/dl (6.3-8.2) Albumin 3.7 g/dl (3.5-5.0) Urine Color Yellow Urine Clarity Clear Urine pH 5.0 pH (4.8-9.5) Urine Specific [place] 1.028 Urine Protein Negative mg/dL (NEGATIVE) Urine Glucose (UA) Negative mg/dL (NEGATIVE) Urine Ketones Negative mg/dL (NEGATIVE) Urine Blood Negative (NEGATIVE) Urine Nitrite Negative (NEGATIVE) Urine Bilirubin Negative (NEGATIVE) Urine Urobilinogen Negative mg/dL (0.2-1.9) Urine Leukocyte Esterase Negative (NEGATIVE) Urine RBC <1 /HPF (0-2/HPF) Urine WBC 2 /HPF (0-5/HPF) Urine Squamous Epithelial Cells Many /LPF (NONE-FEW) Urine Bacteria Negative /HPF (NONE-FEW) Urine Mucus Few /HPF (NONE-FEW) Urinalysis Test 08/01/18 05:00 Urine Color Yellow Urine Clarity Clear Urine pH 5.0 pH (4.8-9.5) Urine Specific [place] 1.028 Urine Protein Negative mg/dL (NEGATIVE) Urine Glucose (UA) Negative mg/dL (NEGATIVE) Urine Ketones Negative mg/dL (NEGATIVE) Urine Blood Negative (NEGATIVE) Urine Nitrite Negative (NEGATIVE) Urine Bilirubin Negative (NEGATIVE) Urine Urobilinogen Negative mg/dL (0.2-1.9) Urine Leukocyte Esterase Negative (NEGATIVE) Urine RBC <1 /HPF (0-2/HPF) Urine WBC 2 /HPF (0-5/HPF) Urine Squamous Epithelial Cells Many /LPF (NONE-FEW) Urine Bacteria Negative /HPF (NONE-FEW) Urine Mucus Few /HPF (NONE-FEW) EKG/Imaging Imaging X-ray: Single view portable chest x-ray was obtained. I viewed the images myself on the PACS system. My interpretation of the images is: No infiltrate, no effusion, normal mediastinum,? Atelectasis, The radiologist interpretation had no clinically significant variation from this interpretation. Radiology notes increased pulmonary vascular congestion X-ray: Right hip 2 views was obtained. I viewed the images myself on the PACS system. My interpretation of the images is: No fracture no dislocation, no malalignment. The radiologist interpretation had no clinically significant issac iation from this interpretation. ED Course/Re-evaluation ED Course Patient was admitted to an examination room. H&P was done. The differential diagnoses was considered. On clinical examination, patient appears to have her baseline dementia. She is responding appropriately to questions. She is only oriented to self. Which is her baseline. Patient was examined from head to toe. There is a hematoma on her right flank over the scapular area. Basic diagnostic laboratory studies were unremarkable. Urinalysis was negative. Test x-ray and right hip x-rays were unremarkable. She'll return to [facility] to resume previous orders. Decision to Disposition Date: Aug 01, 2018 Decision to Disposition Time: 04:54 Depart Departure Latest Vital Signs Vital Signs Date Time Temp Pulse Resp B/P (MAP) Pulse Ox O2 Delivery O2 Flow Rate FiO2 08/01/18 04:36 98.6 73 16 142/85 92 Room Air Impression: Primary Impression: Fall in elderly patient Additional Impressions: Hematoma Dementia Do not resuscitate Condition: Improved Disposition: HOME OR SELF-CARE Referrals: KERRI ALATORRE MD (PCP) Patient Instructions: Hematoma (ED) Problem Qualifiers Additional Impressions: Dementia Dementia type: Alzheimer's disease Alzheimer's disease onset: unspecified onset Dementia behavioral disturbance: without behavioral disturbance Qualified Codes: G30.9 - Alzheimer's disease, unspecified; F02.80 - Dementia in other diseases classified elsewhere without behavioral disturbance KEYSHA CARIAS DO Aug 01, 2018 04:38
[2018-08-01 04:56] LABS: PLATELET COUNT, AUTOMATED 219 K/uL (150-450)
--- NOTE | 2018-08-01 05:47 | RADIOLOGY IMAGING REPORT ---
FACILITY: [facility] PATIENT NAME: Ale Moffett : 1935 MR: [id number] V: [id number] EXAM DATE: ORDERING PHYSICIAN: KEYSHA CARIAS TECHNOLOGIST: Location: [facility] Patient: Ale Moffett : 1935 Visit/Account:[id number] Date of Sevice: 08/01/2018 CHEST SINGLE AP 08/01/2018 04:42 hours. HISTORY: Fall. Cough and altered mental status. Right hip pain. COMPARISON: 04/03/2018. TECHNIQUE: Portable AP view of the chest. FINDINGS: Tubes/lines/hardware: None. Pulmonary/pleura: There is central vascular congestion. There is new subsegmental left basilar opacit y. There is no pneumothorax or pleural effusion. Cardiomediastinal: The cardiac silhouette is at the upper limits of normal. The mediastinal silhouett e is within normal limits. There is mild aortic calcification. Bones/soft tissues: No acute osseous abnormality. There is mild degenerative change of the spine. Lum bar spine curves to the left. The visible abdomen is normal. IMPRESSION: 1. Stable cardiomegaly and mild central vascular congestion. 2. Subsegmental left basilar opacity is likely atelectasis. Report Dictated By: Jonelle Bailey at 08/01/2018 5:41 AM Report E-Signed By: Jonelle Bailey at 08/01/2018 5:43 AM WSN:[id number]
--- NOTE | 2018-08-01 05:48 | RADIOLOGY IMAGING REPORT ---
FACILITY: [facility] PATIENT NAME: Ale Moffett : 1935 MR: [id number] V: [id number] EXAM DATE: ORDERING PHYSICIAN: KEYSHA CARIAS TECHNOLOGIST: Location: [facility] Patient: Ale Moffett : 1935 Visit/Account:[id number] Date of Sevice: 08/01/2018 HIP RIGHT HISTORY: Fall. Right hip pain. COMPARISON: None. TECHNIQUE: AP view of the pelvis and frog-leg lateral view of the right hip. FINDINGS: There is no fracture or dislocation. The sacroiliac joints are patent without widening. The re is no pubic diastases. There is moderate degenerative change of the visible lumbar spine. IMPRESSION: 1. No acute osseous abnormality of the pelvis and right hip. Report Dictated By: Jonelle Bailey at 08/01/2018 5:43 AM Report E-Signed By: Jonelle Bailey at 08/01/2018 5:44 AM WSN:[id number]
== END 2018-08-01 06:13 | disposition home or self-care (01) ==
LOC: ER 04:40
DX: S30.1XXA Contusion of abdominal wall, initial encounter (principal); G30.9 Alzheimer's disease, unspecified; F02.80 Dementia in other diseases classified elsewhere, unspecified severity, without behavioral disturbance, psychotic disturbance, mood disturbance, and anxiety; W19.XXXA Unspecified fall, initial encounter
CPT/HCPCS: 71045; 73502; 81001; 85025; 99284; A4353; 82040; 82247; 82310; 82374; 82435; 82565; 82947; 84075; 84132; 84155; 84295; 84450; 84460; 84520

== ENCOUNTER → 2018-08-01 | Outpatient (CLI) | payer MEDICARE ==
[~2018-08-01] MED LIST changes: +[UNRECOGNIZED DRUG - CODE] PO
== END ==
LOC: AMB 06:03
PROVIDERS: ATTEND Nurse Practitioner
DX: M25.551 Pain in right hip (principal)
CPT/HCPCS: A0425; A0428

== ENCOUNTER → 2018-08-01 | Outpatient (CLI) | payer MEDICARE | LOC: AMB 04:16 | PROVIDERS: ATTEND Nurse Practitioner | DX: M54.9 Dorsalgia, unspecified (principal); W19.XXXA Unspecified fall, initial encounter | CPT/HCPCS: A0425; A0427 ==

== ENCOUNTER → 2018-10-05 | Outpatient (CLI) | payer MEDICARE ==
[~2018-10-05] MED LIST changes: +ACET500T68 PO; -OMEP-125 PO; +OMEP-126 PO
== END ==
LOC: LAB 14:25
PROVIDERS: ATTEND Family Medicine
DX: R42 Dizziness and giddiness (principal); G30.9 Alzheimer's disease, unspecified; R13.10 Dysphagia, unspecified; R32 Unspecified urinary incontinence
CPT/HCPCS: 36415; 82310; 82374; 82435; 82565; 82947; 84132; 84295; 84443; 84520; 85027

== ENCOUNTER → 2018-11-02 | Outpatient (CLI) | payer MEDICARE ==
[~2018-11-02] MED LIST changes: +FERR325T24 PO
[2018-11-02 09:07] LABS: PLATELET COUNT, AUTOMATED 215 K/uL (150-450)
== END ==
LOC: ZZSPRING 02:06
PROVIDERS: ATTEND Family Medicine
DX: D64.9 Anemia, unspecified (principal)
CPT/HCPCS: 36415; 82310; 82374; 82435; 82565; 82728; 82947; 84132; 84295; 84520; 85025